=== PATIENT | male | born 1990 | race Hispanic/Latino ===

== ENCOUNTER 2018-11-28 11:14 | Emergency (ER) | payer OTHER, SELFPAY ==
[2018-11-28 11:41] VITALS: BP 146/98; PULSE 85; RESP 18; TEMP 36.2; O2SAT 99
[2018-11-28 12:43] VITALS: BP 135/84; PULSE 80; RESP 20; O2SAT 99
--- NOTE | 2018-11-28 13:17 | ED_ITS ---
HPI - Male Genitourinary <Evelia Briceno PA-C - Last Filed: 11/28/18 20:42> General Chief complaint: Urogenital-Male Stated complaint: URGENCY TO URINATE Time Seen by Provider: 11/28/18 12:53 Source: patient Mode of arrival: ambulatory Limitations: no limitations History of Present Illness HPI Narrative: This generally healthy 28 year old male comes in due to onset of urinary frequency and urgency on Sunday, which has not improved. He denies dysuria. He denies hematuria. He has not had any new fevers, flank pain, nausea or vomiting. He has not had any new diet change or change in fluid intake. He has not had any penile lesions or discharge. No specific std exposure known, however he has had male and female partners. He states that he is feeling otherwise well in going about his usual activities. Only other + on systems review is that he has had some constipation in the last couple of weeks and has taken laxatives twice. Last bowel movement was today. Related Data Previous Rx's Medication Instructions Recorded tolterodine [Detrol LA] 4 mg PO DAILY #14 cap 11/28/18 Allergies Allergy/AdvReac Type Severity Reaction Status Date / Time No Known Allergies Allergy Uncoded 02/13/18 12:46 Review of Systems <VIOLA Jimenez Last Filed: 11/28/18 20:42> Review of Systems ROS Unobtainable: All systems reviewed & are unremarkable except as noted in HPI and below PFSH <Evelia Briceno PA-C - Last Filed: 11/28/18 20:42> Comment: No street drugs, active duty nonsmoker Exam <VIOLA Jimenez Last Filed: 11/28/18 20:42> Narrative Exam Narrative: GENERAL APPEARANCE: Patient sitting comfortably, in no distress. NECK/THYROID: Neck supple HEART: Regular rate and rhythm without murmur, normal S1, S2, no S3 or S4. ABDOMEN: Soft, NT, ND, + BS x 4 quadrants EXTREMITIES: No edema. No calf tenderness NEUROLOGIC: Alert and oriented, normal speech and coordination. RECTAL: Prostate is flat without nodules, normal texture Initial Vital Signs Initial Vital Signs: Vital Signs Temperature 97.1 F L 11/28/18 11:41 Pulse Rate 85 11/28/18 11:41 Respiratory Rate 18 11/28/18 11:41 Blood Pressure 146/98 H 11/28/18 11:41 Pulse Oximetry 99 11/28/18 11:41 <DO Barber Lau Last Filed: 11/29/18 07:41> Initial Vital Signs Initial Vital Signs: Vital Signs Temperature 97.1 F L 11/28/18 11:41 Pulse Rate 85 11/28/18 11:41 Respiratory Rate 18 11/28/18 11:41 Blood Pressure 146/98 H 11/28/18 11:41 Pulse Oximetry 99 11/28/18 11:41 Course <VIOLA Jimenez Last Filed: 11/28/18 20:42> Orders Ordered: ED Orders 11/28/18 12:20 Urine Chlamydia Gonorrhea PCR Stat Vital Signs - 8 hr 11/28/18 12:43 11/28/18 14:20 Temperature 97.8 F Pulse Rate 80 73 Respiratory Rate 20 16 Blood Pressure [Left Arm] 135/84 123/91 H Pulse Oximetry 99 98 <DO Barber Lau Last Filed: 11/29/18 07:41> Orders Ordered: ED Orders 11/28/18 12:20 Urine Chlamydia Gonorrhea PCR Stat Vital Signs - 8 hr 11/28/18 12:43 11/28/18 14:20 Temperature 97.8 F Pulse Rate 80 73 Respiratory Rate 20 16 Blood Pressure [Left Arm] 135/84 123/91 H Pulse Oximetry 99 98 MDM - Male Genitourinary <VIOLA Jimenez Last Filed: 11/28/18 20:42> Lab Data Lab Results 11/28/18 Range/Units 12:20 Ur Chlamydia DNA (PCR) Not detected N gonorrhoeae DNA (PCR) Not detected Urine Dip Bedside Urine Glucose Negative Bedside Urine Bilirubin - Negative Bedside Urine Ketone - Negative Urine Specific [place] 1.010 Bedside Urine Occult Blood - Negative Bedside Urine pH 6.0 Bedside Urine Protein - Negative Bedside Urine Urobilinogen - Negative Bedside Urine Nitrite - Negative Bedside Urine Leukocytes - Negative Esterase <DO Barber Lau Last Filed: 11/29/18 07:41> Lab Data Lab Results 11/28/18 Range/Units 12:20 Ur Chlamydia DNA (PCR) Not detected N gonorrhoeae DNA (PCR) Not detected Urine Dip Bedside Urine Glucose Negative Bedside Urine Bilirubin - Negative Bedside Urine Ketone - Negative Urine Specific [place] 1.010 Bedside Urine Occult Blood - Negative Bedside Urine pH 6.0 Bedside Urine Protein - Negative Bedside Urine Urobilinogen - Negative Bedside Urine Nitrite - Negative Bedside Urine Leukocytes - Negative Esterase Discharge Plan Departure Patient Disposition: Home Clinical Impression: OAB (overactive bladder), Constipation Discharge Date/Time: 11/28/18 14:25 Interventions: ED Discharge Assessment Last Done: 11/28/18 14:25 Instructions: DI for Constipation, DI for Overactive Bladder Activity Restrictions/Additional Instructions: Your testing today did not show a urinary infection, or sexually transmitted disease (gonorrhea or chlamydia). You did not have an abnormal prostate exam or other explanation for your urinary frequency and urgency. Please return as we talked about if you have acutely worsening symptoms, or new symptoms such as fever, vomiting, or blood in the urine. Otherwise, please treat your constipation 1st to see if your symptoms improve. Mix 4-6 oz each of apple juice, prune juice, with 1 dose of MiraLax and 1 dose of [id number] Maalox. This should help produce a bowel movement. After that, please take the Maalox once daily. If your symptoms have not improved, I have sent a small supply of medicine for overactive bladder to your pharmacy for you to try. You should follow up with your primary care provider within about a week to reassess this and see whether helpful or weather changes or urology consultation are needed as we talked about. Prescriptions: New tolterodine [Detrol LA] 4 mg capsule,extended release 24hr 4 mg PO DAILY Qty: 14 RF: 0 Referrals: [facility] [Provider Group] <Rosendo Merrill DO - Last Filed: 11/29/18 07:41> [facility] ED Attending Benedict Attestation: I was available for consultation during this patient's emergency department encounter
[2018-11-28 13:58] LABS: Urine N gonorrhoeae NOT DETECTED
[2018-11-28 13:59] LABS: Urine Chlamydia NOT DETECTED
[2018-11-28 14:20] VITALS: BP 123/91; PULSE 73; RESP 16; TEMP 36.6; O2SAT 98
== END 2018-11-28 14:25 | disposition home or self-care (01) ==
PROVIDERS: Emergency Medicine; Emergency Provider Internal Medicine
DX: N32.81 Overactive bladder (principal); K59.00 Constipation, unspecified
CPT/HCPCS: 81003; 87491; 87591; 99282

== ENCOUNTER → 2020-06-30 15:53 | Outpatient (CLI) | payer OTHER, SELFPAY ==
[2020-06-30 16:55] LABS: Add Manual Diff / Slide Review NO; Basophils Absolute Auto 0 /uL (0-100); Basophils Percent Auto 0.5 % (0-2); Eosinophils Absolute Auto 100 /uL (0-450); Eosinophils Percent Auto 1.4 % (2-4); Hematocrit 43.2 % (41-53); Hemoglobin 15.1 g/dL (13.5-17.5); Lymphocytes Absolute Auto 1900 /uL (1100-4500); Lymphocytes Percent Auto 21.9 % (25-40); Mean Corpuscular HGB Conc 34.9 % (30-36); Mean Corpuscular Hemoglobin 31.1 PG (26-34); Mean Corpuscular Volume 88.9 fL (80-100); Monocytes Absolute Auto 700 /uL (0-900); Monocytes Percent Auto 7.8 % (3-14); Neutrophils Absolute Auto 5900 /uL (1500-7000); Neutrophils Percent Auto 68.4 % (50-75); Platelet Count 200 X10^3/uL (150-400); Red Blood Cell Count 4.86 X10^6/uL (4.5-5.9); Red Cell Distribution Width 13.8 % (11.6-14.8); White Blood Cell Count 8.7 X10^3/uL (4.5-11.0)
[2020-06-30 17:23] LABS: BUN Creatinine Ratio 15.5 (6-22); Blood Urea Nitrogen 13 mg/dL (9-20); Calcium 9.8 mg/dL (8.4-10.2); Carbon Dioxide 23 mmol/L (22-32); Chloride 102 mmol/L (98-107); Cholesterol 195 mg/dL (140-199); Estimated Glomerular Filt Rate > 60.0 mL/min (>60); Glucose 88 mg/dL (70-100); HDL Cholesterol 59 mg/dL (40-60); HEMOLYSIS < 15 (0-50); LDL Cholesterol Calculated 120 mg/dL (<100); Potassium 4.3 mmol/L (3.4-5.1); Sodium 138 mmol/L (137-145); Triglycerides 80 mg/dL (35-150)
[2020-06-30 17:47] LABS: TSH w/ Reflex to FT4 2.49 uIU/mL (0.47-4.68)
== END ==
PROVIDERS: Referring Provider Internal Medicine Cardiovascular Disease; Visit Provider Internal Medicine Cardiovascular Disease
DX: R00.0 Tachycardia, unspecified (principal); Z00.00 Encounter for general adult medical examination without abnormal findings
CPT/HCPCS: 36415; 80048; 80061; 84443; 85025